=== PATIENT | male | born 1940 | race Caucasian/White ===

== ENCOUNTER 2023-06-11 13:53 | Emergency (ER) | payer OTHER, SELFPAY ==
[2023-06-11 14:00] VITALS: BP 147/69
--- NOTE | 2023-06-11 16:56 | ED.MUSCINJ ---
HPI-Injury
General
Chief Complaint: Musculo-Skeletal Complaint
Source: patient and family
Exam Limitations: none
Time Seen by Provider: 06/11/23 14:51
Nursing documentation reviewed up to this point in time: agreed with
Travel History
Have you had any contact with someone who has COVID-19?: No
Do you have any symptoms of coronavirus? Fever > 100 degrees, chills, cough, shortness of breath, sore throat, loss of taste or smell, muscle aches, or headache?: No
History of Present Illness-Injury
Is this injury a work related problem?: No
Is pt an associate of [facility]?: No
Initial Injury comments:
Patient is a 82-year-old male past medical history of hypertension, hyperlipidemia, mgn-[id number] diabetes who presents to the emergency department with his and daughter for evaluation following a fall that occurred yesterday afternoon
around 330. Patient reports that he was trying to get his lawnmower out of an area where it was entangled with some nasima. Patient reports he subsequently stumbled backwards, stepped into a small divot in the ground, and landed on his left side.
Patient denies head injury or loss of consciousness. Patient reports pain over his left upper leg. Patient decided to come to the emergency department today for evaluation. Patient denies any other injuries were sustained. He reports that he is
able to ambulate with the assistance of 2 canes. Patient denies any numbness, weakness, tingling of his extremities. Patient reports taking Tylenol arthritis this morning without significant improvement of his pain. Patient denies he is
anticoagulated.
Past History
Past History
ED Past Medical History: HTN, Hypercholesterolemia, NIDDM (Diet controlled) and Other (melanoma)
ED Past Surgical History: Urological (Prostatectomy)
Social History
Tobacco: Non-smoker
Alcohol: None
Personal:
Living: with family
Review of Systems
Review of Systems
Allergies reviewed?: Yes
All Other Systems: Not applicable
Constitutional: Reports no symptoms
EENT: Reports no symptoms
Respiratory: Reports no symptoms
Cardiac: Reports no symptoms
: Reports no symptoms
Musculoskeletal: Reports other (Left lower extremity pain)
Skin: Reports no symptoms
Neurological: Reports no symptoms
Endocrine: Reports no symptoms
Hematologic/Lymphatic: Reports no symptoms
Psychiatric: Reports no symptoms
Phy Exam
General Physical Exam
General Presentation: well appearing
General age: appears stated age
General Skin: warm and dry
ENT Exam
ENT Exam: EOMI
Cardiovascular Exam
Cardiovascular Exam: normal peripheral pulses
Pulmonary Exam
Pulmonary Exam: no respiratory distress
Musculoskeletal Exam
Musculoskeletal Exam: other (slight swelling to the medial aspect of the posterior proximal upper leg with mild ttp, no ttp to the remainder of the RLE, no pain with log rolling, pt has FROM of the hip, knee, 2+ DP pulses, sensation intact to light
touch distally)
Injury Course
Orders/Labs/Results
Orders:
Orders
06/11/23 15:14
Femur, Left 2 View [CR Femur - Left Min 2 Vw] Urgent
Comment:
Reason For Exam: left upper leg pain s/p fall
Hip, Left 2-3 Views [CR Hip - LT w/wo Pel 2-3 Vw*] Urgent
Comment:
Reason For Exam: left hip pain s/p fall
Include a pelvis x-ray?: Yes
*Critical Care Note
Total Time (30-74mins, 75-104mins- exclusive of procedures): Not Applicable
Update Note
Update Note:
82-year-old male presents for evaluation of left lower extremity pain following mechanical fall that occurred yesterday. On arrival, patient is mildly hypertensive, afebrile. On exam, patient is well-appearing, he is in no acute distress, he is
neurovascularly intact. Radiographs of the left hip and pelvis demonstrates no acute fracture or dislocation. Patient likely with a strain. Patient is able to ambulate safely at home and feels comfortable with discharge. Patient educated on
supportive care including use of ice/heat and analgesia. Patient requests a few doses of a muscle relaxant, will prescribe cyclobenzaprine however the patient and his family were educated on possible adverse effects of these medications especially
given his age. Patient and his family advised the patient should follow-up with his PCP for persistent symptoms and were also educated on return precautions, they expressed understanding of the plan and agreed.
ED Attending Note
-
Portions of this chart may have been created with voice recognition software.� Occasional wrong word or��sound alike� substitutions may have occurred due to the inherent limitations of voice recognition software.
Discharge Plan
Departure
Patient Disposition: Home (Routine Discharge)
Date of Disposition: 06/11/23
Time of Disposition: 17:00
Patient with high blood pressure during this ER visit?: Yes
Condition: Good
Covid-19: Not Applicable
Discharge Problem:
Acute pain of left lower extremity, Fall
Instructions: Musculoskeletal Pain
Prescriptions:
New
cyclobenzaprine 5 mg tablet
5 mg PO HS PRN (Reason: muscle spasm) 5 Days Qty: 5 0RF
Rx Instructions:
Do not drive or operate heavy machinery after taking this medication
Referrals:
Fidencio Montano, [Family Provider] - Follow up in 1 week
Activity Restrictions/Additional Instructions:
You were seen in the emergency department for evaluation of right lower extremity pain following a fall. You had x-rays which show no broken or dislocated bones. You likely have a strain. Please try to rest and elevate the leg when possible. You
may alternate ice and heat to the affected areas for 20 minutes at a time 4-5 times a day. You may take ibuprofen and/or Tylenol as needed for pain. You may take the muscle relaxer that was prescribed today for muscle spasm however keep in mind
that this medication may make you sleepy. Please follow-up with your primary care provider for persistent symptoms lasting greater than 1 week. Please return the emergency department for severe pain, swelling, numbness, weakness, tingling of the
extremity, difficulty walking safely at home, or for any other worsening or concerning symptoms.
Interventions
Interventions:
*Risk Screen - Suicide Last Done: 06/11/23 15:10
*General Assessment Last Done: 06/11/23 15:10
*Neglect/Abuse Screening Last Done: 06/11/23 15:10
ED-Musculoskeletal Assessment Last Done: 06/11/23 15:10
== END 2023-06-11 17:15 | disposition home or self-care (01) ==
LOC: EMR 13:53
PROVIDERS: EMERGENCY PHYSICIAN Emergency Medicine; FAMILY PHYSICIAN Family Medicine
DX: M79.605 Pain in left leg (principal); W01.0XXA Fall on same level from slipping, tripping and stumbling without subsequent striking against object, initial encounter; I10 Essential (primary) hypertension; E78.00 Pure hypercholesterolemia, unspecified; E11.9 Type 2 diabetes mellitus without complications
CPT/HCPCS: 99283; 73502; 73552

== ENCOUNTER 2023-08-12 19:47 | Emergency (ER) | payer OTHER, SELFPAY ==
[2023-08-12 19:49] VITALS: BP 178/61
[2023-08-12 22:44] VITALS: BP 154/69
--- NOTE | 2023-08-12 23:23 | ED.GENMED ---
History of Present Illness
General
Chief Complaint: Fall
Source: patient
Exam Limitations: none
Time Seen by Provider: 08/12/23 22:43
Nursing documentation reviewed up to this point in time: agreed with
Travel History
Have you had any contact with someone who has COVID-19?: No
Do you have any symptoms of coronavirus? Fever > 100 degrees, chills, cough, shortness of breath, sore throat, loss of taste or smell, muscle aches, or headache?: No
History of Present Illness
History of Present Illness:
pt is a 83 y/o M with h/o HTN, HLD
here with minor headache after mechanical trip and fall down 1 step today at 7 pm in his basement. was turning around to go up and didn't realize he had a step behind him and fell backwards onto his head on the concrete flooor
no loc, no vomiting, no dizziness
minomr headache forntal but it resolved while waiting
no vision changes, neck pain, weakness, numbness, confusion, amnesia, fatigue
no thinners or asa/plavix
Past History
Past History
ED Past Medical History: HTN, Hypercholesterolemia, NIDDM (Diet controlled) and Other (melanoma)
ED Past Surgical History: Urological (Prostatectomy)
Social History
Tobacco: Non-smoker
Alcohol: None
Personal:
Living: with family
Review of Systems
Review of Systems
Allergies reviewed?: Yes
All Other Systems: Not applicable
Phy Exam
Physical Exam
Physical Exam:
GENERAL: Alert , in no apparent distress
HEAD: small hemoatma posterior scalp
no bleeding
nontender
EYE: pupils equal and reactive, no nystagmus, no photophobia; mild disconjugate gaze, pt has no sypmtom sof
NECK: Supple,full rom, nontender
ENT: o/p clr, mmm.
CARDIAC: Regular rate and rhythm . no edema
LUNGS: Clear breath sounds bilaterally, no acute respiratory distress, no wheezes/rales/rhonchi
ABDOMEN: Soft, without focal tenderness, no r/g, no cvat
NEUROLOGICAL: Alert and orientedx 4, cn intact, no facial asymmetry, 5/5 strength in UE/LE, sensation intact, romberg neg, ambulates without assistance, neg pronator drift
SKIN: Warm and dry, skin intact.
MUSCULOSKELETAL: No edema, well perfused.
PSYCH: Normal and appropriate interaction.
Course
Orders/Labs/Results
Orders:
Orders
08/12/23 19:[address] [CT Head W/o Iv Contrast] Urgent
Comment:
Reason For Exam: head injury
Vital Signs
Initial and Last Documented VS:
Initial Vital Signs
Temp Pulse Resp BP Pulse Ox
97.8 F 77 18 178/61 99
08/12/23 19:49 08/12/23 19:49 08/12/23 19:49 08/12/23 19:49 08/12/23 19:49
Last Documented Vital Signs
Temp Pulse Resp BP Pulse Ox
97.8 F 72 18 154/69 98
08/12/23 19:49 08/12/23 22:44 08/12/23 22:44 08/12/23 22:44 08/12/23 22:44
MDM/Problems Addressed
Differential Diagnosis Includes:
minor concussion , minor head injury, sdh, ich
MDM/Problems Addressed:
83 y/o M
fall donw 1 step concrete, hit head, no loc, no thinners
mild headache resolved
incident occured 4 hours ago
neuro itnact
ct head neg
c/ home/
*Critical Care Note
Total Time (30-74mins, 75-104mins- exclusive of procedures): Not Applicable
ED Attending Note
-
Portions of this chart may have been created with voice recognition software.� Occasional wrong word or��sound alike� substitutions may have occurred due to the inherent limitations of voice recognition software.
Discharge Plan
Departure
Patient Disposition: Home (Routine Discharge)
Date of Disposition: 08/12/23
Time of Disposition: 23:26
Patient with high blood pressure during this ER visit?: Yes
Condition: Fair
Discharge Problem:
Minor closed head injury
Instructions: Head Injury in Adults (DC), BLOOD PRESSURE
Referrals:
Fidencio Montano DO [Family Provider] -
Activity Restrictions/Additional Instructions:
YOUR CAT SCAN WAS NEGATIVE
YOU HAD NO SIGNS OF SERIOUS HEAD INJURY
TYLENOL NEEDED FOR HEADACHE
FOLLOW UP WITH YOUR DOCTOR THIS WEEK
RETURN FOR WOSRE SYPMTOMS, VOMITING, CONFUSION, WEAKNESS, BALANCE PROBLEMS ETC
Interventions
Interventions:
*Neglect/Abuse Screening Last Done: 08/12/23 19:49
*ED COVID-19 Vaccine History Last Done: 08/12/23 19:53
ED-Musculoskeletal Assessment Last Done: 08/12/23 22:50
ED- Neurological Assessment Last Done: 08/12/23 22:50
ED-Skin Assessment Last Done: 08/12/23 22:50
Discharge Date and Time
Print Language: ARABIC
== END 2023-08-12 23:40 | disposition home or self-care (01) ==
LOC: EMR 19:47
PROVIDERS: EMERGENCY PHYSICIAN Emergency Medicine; FAMILY PHYSICIAN Family Medicine
DX: S09.90XA Unspecified injury of head, initial encounter (principal); W10.9XXA Fall (on) (from) unspecified stairs and steps, initial encounter; I10 Essential (primary) hypertension; E78.00 Pure hypercholesterolemia, unspecified
CPT/HCPCS: 99284; 70450